=== PATIENT | male | born 1950 ===

== ENCOUNTER 2022-12-10 04:54 | Day surgery (SDC) | payer OTHER ==
[2022-12-06 09:45] VITALS: BMI 25.6
[2022-12-10] MEDS ORDERED: PROPOFOL 20 ML ONE (07:28)
[2022-12-10] MEDS ORDERED: MIDAZOLAM HCL 2 MG/2 ML SINGLE DOSE VIAL ONE (07:28)
[2022-12-10] MEDS ORDERED: FENTANYL CITRATE/PF 50 MCG/ML VIAL ONE (07:28)
[2022-12-10] MEDS ORDERED: ceFAZolin SODIUM 1 GM VIAL IVPB ONE (07:41)
[2022-12-10] MEDS ORDERED: ceFAZolin SODIUM 1 GM VIAL ONE (07:50)
[2022-12-10] MEDS ORDERED: DEXAMETHASONE SOD PHOSPHATE 4 MG/1 ML VIAL ONE (07:51)
[2022-12-10] MEDS ORDERED: ONDANSETRON 4 MG/2 ML VIAL ONE (07:51)
[2022-12-10] MEDS ORDERED: ONDANSETRON 4 MG/2 ML VIAL IVPUSH PRN (08:51)
[2022-12-10] MEDS ORDERED: CEFAZOLIN SODIUM 2 GM VIAL IVPB SCH (10:00)
[2022-12-10] MEDS: LACTATED RINGERS SOLUTION 1,000 ML IV SCH ×2 (12:15→12:44)
[2022-12-10] MEDS: FINASTERIDE 5 MG TABLET (FP) PO SCH (12:40)
[2022-12-10] MEDS: LOSARTAN 50MG/HCTZ 12.5MG 1 TAB PO SCH (12:41)
[2022-12-10] MEDS: metoPROLOL SUCCINATE 25 MG TAB.SR.24H (FP) PO SCH (12:41)
[2022-12-10] MEDS: amLODIPine BESYLATE 10 MG TABLET (FP) PO SCH (12:41)
[2022-12-10] MEDS: MECLIZINE HCL 25 MG TABLET (FP) PO ONE ×2 (12:42→12:43)
[2022-12-10 12:45] VITALS: RESP 18
[2022-12-10] MEDS: CEFAZOLIN 1 GM in DEXTROSE 5%-WATER - 50 ML IVPB SCH (17:47)
[2022-12-10] MEDS ORDERED: ACETAMINOPHEN 325 MG TABLET (FP) PO PRN (19:17)
[2022-12-10] MEDS ORDERED: ATORVASTATIN CA 80 MG TABLET (FP) PO SCH (22:00)
[2022-12-11] MEDS: CEFAZOLIN 1 GM in DEXTROSE 5%-WATER - 50 ML IVPB SCH ×2 (00:50→09:00)
[2022-12-11 07:38] VITALS: PULSE 78
[2022-12-11 07:57] LABS: HEMOGLOBIN 14.4 GM/dL (11.7-16.9); MCH 29.1 pg (25.7-33.7); MCHC 33.5 g/dl (32.0-35.9); MEAN CELL VOLUME 86.9 fl (80-96); MEAN PLT VOLUME 8.8 fl (7.5-11.1); PLATELET COUNT 225 10^3/uL (134-434); RBC 4.95 M/mm3 (4.00-5.60); RDW 13.1 % (11.9-15.9); WHITE BLOOD COUNT 13.7 K/mm3 (4.0-10.0)
[2022-12-11 08:14] LABS: POTASSIUM 3.9 mmol/L (3.5-5.1)
[2022-12-11 08:21] LABS: CALCIUM 8.9 mg/dL (8.5-10.1)
[2022-12-11] MEDS: FINASTERIDE 5 MG TABLET (FP) PO SCH (10:15)
[2022-12-11] MEDS: metoPROLOL SUCCINATE 25 MG TAB.SR.24H (FP) PO SCH (10:15)
[2022-12-11] MEDS: amLODIPine BESYLATE 10 MG TABLET (FP) PO SCH (10:15)
[2022-12-11] MEDS: LOSARTAN 50MG/HCTZ 12.5MG 1 TAB PO SCH (10:15)
[2022-12-11 12:02] VITALS: BP 168/90; TEMP 97.5
== END 2022-12-11 11:50 | disposition home or self-care (01) ==
LOC: JASUSAT 04:54 → JASU-SURG 04:54 → J7W 12:30 → JASUSAT 12-11 11:50
PROVIDERS: ATTEND Urology
PROC: 0V507ZZ Destruction of Prostate, Via Natural or Artificial Opening (ICD-10-PCS; principal; 2022-12-10 07:30)
DX: N40.1 Benign prostatic hyperplasia with lower urinary tract symptoms (principal); R33.8 Other retention of urine
CPT/HCPCS: 36415; 80048; 85027; 88305-TC; 88342-TC; 94760